=== PATIENT | female | born 1965 | race Caucasian/White ===

== ENCOUNTER 2019-09-29 00:04 | Day surgery (SDC) | payer OTHER, SELFPAY ==
[2019-09-22 14:52] VITALS: BMI 25.1
[2019-09-29 06:39] VITALS: BP 143/40; PULSE 64; RESP 16; TEMP 36.6; O2SAT 99
[2019-09-29] MEDS: LACTATED RINGERS 1,000 ML 150 ML IV CONT (07:09)
--- NOTE | 2019-09-29 07:20 | WPDANESEPPF ---
Anes - Initial Pre Proc Eval Procedure: Operation Date: 09/29/19 07:30 Proposed Procedures p Screening Colonoscopy - Ulices Baugh MD Date/Time: 09/29/19 07:20 Surgeon: Ulices Baugh MD Pre Op Diagnosis: neoplasm screening Patient Data Age: 53 Gender: F Height: 5 ft 8 in Weight: 76.2 kg Last Vital Signs Temp 97.9 F 09/29/19 06:39 Pulse 64 09/29/19 06:39 Resp 16 09/29/19 06:39 BP 143/40 H 09/29/19 06:39 Pulse Ox 99 09/29/19 06:39 Allergies Allergy/AdvReac Type Severity Reaction Status Date / Time No Known Allergies Allergy Unverified 09/29/19 06:38 Home Medications Medication Instructions Recorded Confirmed Type aspirin [Aspir-81] 81 mg PO DAILY 09/22/19 09/29/19 History conjugated estrogens [Premarin] 0.625 mg VAGINAL 3XW 09/22/19 09/29/19 History hydroxyurea 500 mg PO DAILY 09/22/19 09/29/19 History rosuvastatin 10 mg PO DAILY 09/22/19 09/29/19 History telmisartan-hydrochlorothiazid 80 tablet PO DAILY 09/22/19 09/29/19 History Patient hx anesthesia problems: none Family hx anesthesia problems: none PMFSH Past Medical History Medical History (Updated 09/29/19 @ 07:20 by Toni Chaidez MD) 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 Hyperlipidemia Hypertension Social History Social History Gender identity (if verbalized by the patient): Female Anes - Eval Final PreProcedure Day of Procedure 09/29/19 07:20 Patient weight: normal Heart: regular rate and rhythm Lungs: clear to auscultation Airway: Mallampati scale class II Neurological: alert and oriented Last oral intake: >/= 8 hours ASA classification: II Emergent: no Anesthetic plan: proceed Anesthesia type and monitoring: general GIVS and standard monitoring Informed Consent: The patient's anesthetic plan and its attendant risks and benefits were discussed with the patient/family/POA. Questions were solicited and answers provided to the satisfaction of the patient/family/POA.
--- NOTE | 2019-09-29 07:49 | WPDGICN ---
Assessment and Plan Assessment and plan (1) Encounter for screening for colorectal malignant neoplasm: Code(s): Z12.11 - Encounter for screening for malignant neoplasm of colon; Z12.12 - Encounter for screening for malignant neoplasm of rectum Status: Acute Assessment and Plan: Neoplasia screening colonoscopy advised. High-fiber diet suggested. Further recommendations may be given after endoscopy. GI Consult Note Consult date/time: 09/29/19 07:49 HPI: Thuy Quintero is a 53 year old female Seen in evaluation at the request of BERTA Balderrama. Patient presents for neoplasia screening. Current weight appetite bowel movements are normal. She denies any blood in her stools. Family history noncontributory. She denies abdominal pain. Her bowel habits are normal. 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 Hyperlipidemia Hypertension Social History Social History Gender identity (if verbalized by the patient): Female Meds Home Medications and Allergies Home Medications Medication Instructions Recorded Confirmed Type aspirin [Aspir-81] 81 mg PO DAILY 09/22/19 09/29/19 History conjugated estrogens [Premarin] 0.625 mg VAGINAL 3XW 09/22/19 09/29/19 History hydroxyurea 500 mg PO DAILY 09/22/19 09/29/19 History rosuvastatin 10 mg PO DAILY 09/22/19 09/29/19 History telmisartan-hydrochlorothiazid 80 tablet PO DAILY 09/22/19 09/29/19 History Allergies Allergy/AdvReac Type Severity Reaction Status Date / Time No Known Allergies Allergy Unverified 09/29/19 06:38 Vital Signs Vital Signs - 24 hr 09/29/19 06:39 Temperature 36.6 C Pulse Rate 64 Respiratory Rate 16 Blood Pressure 143/40 H Pulse Oximetry 99 Exam Narrative: Exam Narrative: Physical exam reveals her to be alert. Vital signs stable. HEENT exam unremarkable. Lungs are clear to auscultation and percussion. Heart is without murmur or extra sounds. Abdominal exam bowel sounds are present soft nontender with no organomegaly. Digital external rectal exam is normal.
[2019-09-29 07:55] VITALS: BP 108/46; PULSE 74; RESP 16; O2SAT 97
[2019-09-29 08:05] VITALS: BP 109/36; PULSE 74; RESP 16; O2SAT 98
[2019-09-29 08:20] VITALS: BP 108/56; PULSE 77; RESP 16; O2SAT 98
== END 2019-09-29 08:25 | disposition home or self-care (01) ==
PROVIDERS: PCP Family Medicine; Visit Provider Internal Medicine Gastroenterology
PROC: 0DJD8ZZ Inspection of Lower Intestinal Tract, Via Natural or Artificial Opening Endoscopic (ICD-10-PCS; CPT 45378; principal; 2019-09-29 07:30)
DX: Z12.11 Encounter for screening for malignant neoplasm of colon (principal); K57.30 Diverticulosis of large intestine without perforation or abscess without bleeding; K64.8 Other hemorrhoids; I10 Essential (primary) hypertension; E78.5 Hyperlipidemia, unspecified; Z86.718 Personal history of other venous thrombosis and embolism; Z79.82 Long term (current) use of aspirin
CPT/HCPCS: 45378; J2704; J7120

== ENCOUNTER 2020-07-30 08:14 | Outpatient (NON) | payer OTHER, SELFPAY ==
[2020-07-30 23:29] LABS: SARS-CoV-2 RNA PCR Negative
== END 2020-07-30 08:15 ==
PROVIDERS: PCP Family Medicine; Visit Provider Family Medicine
DX: Z01.812 Encounter for preprocedural laboratory examination (principal); Z20.822 Contact with and (suspected) exposure to COVID-19
CPT/HCPCS: C9803; U0003

== ENCOUNTER → 2020-11-30 01:19 | Outpatient (CLI) | payer OTHER, SELFPAY ==
[2020-11-30 18:55] LABS: SARS-CoV-2 RNA PCR Negative
== END ==
PROVIDERS: PCP Family Medicine; Visit Provider Internal Medicine Gastroenterology
DX: Z01.812 Encounter for preprocedural laboratory examination (principal); Z20.822 Contact with and (suspected) exposure to COVID-19
CPT/HCPCS: C9803; U0003; U0005

== ENCOUNTER 2020-12-03 05:30 | Day surgery (SDC) | payer OTHER, SELFPAY ==
[2020-11-22 15:16] VITALS: BMI 25.5
[2020-12-03 06:36] VITALS: BP 133/47; PULSE 69; RESP 18; TEMP 36.7; O2SAT 100; BMI 26.2
[2020-12-03] MEDS: LACTATED RINGERS 1,000 ML 150 ML IV CONT (06:40)
--- NOTE | 2020-12-03 07:21 | WPDANESEPPF ---
Anes - Initial Pre Proc Eval Procedure: Operation Date: 12/03/20 07:30 Proposed Procedures p Esophagogastroduodenoscopy - Blake Caballero MD Date/Time: 12/03/20 07:21 Surgeon: Blake Caballero MD Pre Op Diagnosis: epigastric pain Patient Data Age: 54 Gender: F Height: 5 ft 8 in Weight: 78.1 kg Last Vital Signs Temp 98.1 F 12/03/20 06:36 Pulse 69 12/03/20 06:36 Resp 18 12/03/20 06:36 BP 133/47 L 12/03/20 06:36 Pulse Ox 100 12/03/20 06:36 Allergies Allergy/AdvReac Type Severity Reaction Status Date / Time No Known Allergies Allergy Verified 12/03/20 06:34 Home Medications Medication Instructions Recorded Confirmed Type aspirin [Aspir-81] 81 mg PO DAILY 09/22/19 12/03/20 History conjugated estrogens [Premarin] 0.625 mg VAGINAL 3XW 09/22/19 12/03/20 History rosuvastatin 10 mg PO DAILY 09/22/19 12/03/20 History telmisartan-hydrochlorothiazid 80 tablet PO DAILY 09/22/19 12/03/20 History allopurinol 300 mg PO BID 11/22/20 12/03/20 History ivosidenib [Tibsovo] 500 mg PO BID 11/22/20 12/03/20 History pantoprazole 40 mg PO DAILY 11/22/20 12/03/20 History rivaroxaban [Xarelto] 10 mg PO DAILY 11/22/20 12/03/20 History ruxolitinib [Jakafi] 10 mg PO BID 11/22/20 12/03/20 History Patient hx anesthesia problems: none Family hx anesthesia problems: none PMFSH Past Medical History Medical History (Updated 09/29/19 @ 07:51 by Ulices Baugh MD) 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 Hyperlipidemia Hypertension Social History Social History Smoking status: Former smoker Tobacco type: cigarettes Smoking end date: 07/23/89 Alcohol intake: never Substance use: never Substance use type: does not use Living arrangements: with family Gender identity (if verbalized by the patient): Female Sexual Orientation (if Verbalized by the Patient): Straight or Heterosexual Spiritual care concerns: No Anes - Eval Final PreProcedure Day of Procedure 12/03/20 07:21 Patient weight: normal Heart: regular rate and rhythm Lungs: clear to auscultation Airway: Mallampati scale class II Neurological: alert and oriented Last oral intake: >/= 8 hours ASA classification: III Emergent: no Anesthetic plan: proceed Anesthesia type and monitoring: general GIVS and standard monitoring Informed Consent: The patient's anesthetic plan and its attendant risks and benefits were discussed with the patient/family/POA. Questions were solicited and answers provided to the satisfaction of the patient/family/POA.
--- NOTE | 2020-12-03 07:34 | PM.HPGS ---
History of Present Illness History of Present Illness Consent: Risks, benefits, and alternatives have been discussed and questions answered. Patient agrees to proceed with procedure. Chief complaint: epigastric pain Narrative: Thuy Quintero is a 54 year old female with gerd and phlegm in throat, better with protonix but never had egd Review of Systems Constitutional: Constitutional: Denies headache(s) and Denies weakness Eyes: Eyes: Denies blurry vision ENT: Reports Normal hearing present, Denies headache(s) and Denies neck pain Cardiovascular: Cardiovascular: Denies chest pain and Denies dyspnea Respiratory: Respiratory: Denies dyspnea Gastrointestinal: Gastrointestinal: Reports no additional gastrointestinal complaints Genitourinary: Genitourinary: Denies dysuria Musculoskeletal: Musculoskeletal: Denies neck pain Integumentary/Breasts: Skin/Breast: Denies dry skin Neurologic: Reports Normal hearing present, Denies headache(s) and Denies weakness Psychiatric: Psychiatric: Denies anxiety Endocrine: Endocrine: Denies change in body appearance Hematologic/Lymphatic: Hematologic/Lymphatic: Denies easy bleeding Allergic/Immunologic: Allergic/Immunologic: Denies urticaria PMFSH Past Medical History Medical History (Updated 12/03/20 @ 07:35 by Blake Caballero MD) 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 GERD (gastroesophageal reflux disease) Hyperlipidemia Hypertension Social History Social History Smoking status: Former smoker Tobacco type: cigarettes Smoking end date: 07/23/89 Alcohol intake: never Substance use: never Substance use type: does not use Living arrangements: with family Gender identity (if verbalized by the patient): Female Sexual Orientation (if Verbalized by the Patient): Straight or Heterosexual Spiritual care concerns: No Meds Home Medications and Allergies Home Medications Medication Instructions Recorded Confirmed Type aspirin [Aspir-81] 81 mg PO DAILY 09/22/19 12/03/20 History conjugated estrogens [Premarin] 0.625 mg VAGINAL 3XW 09/22/19 12/03/20 History rosuvastatin 10 mg PO DAILY 09/22/19 12/03/20 History telmisartan-hydrochlorothiazid 80 tablet PO DAILY 09/22/19 12/03/20 History allopurinol 300 mg PO BID 11/22/20 12/03/20 History ivosidenib [Tibsovo] 500 mg PO BID 11/22/20 12/03/20 History pantoprazole 40 mg PO DAILY 11/22/20 12/03/20 History rivaroxaban [Xarelto] 10 mg PO DAILY 11/22/20 12/03/20 History ruxolitinib [Jakafi] 10 mg PO BID 11/22/20 12/03/20 History Allergies Allergy/AdvReac Type Severity Reaction Status Date / Time No Known Allergies Allergy Verified 12/03/20 06:34 Vital Signs Vital Signs - 24 hr 12/03/20 06:36 Temperature 98.1 F Pulse Rate 69 Respiratory Rate 18 Blood Pressure 133/47 L Pulse Oximetry 100 Exam Const: General: comfortable and no acute distress HENMT: General nose exam: Normal nares present Eyes: General: appearance normal, both eyes and all related structures Neck: Neck: no JVD Resp: Auscultation: clear to auscultation bilaterally Cardio: Rate: regular rate Rhythm: regular rhythm GI: Inspection: non-distended GI Palp: Yes Soft to palpation Skin: General skin exam: normal color Neuro: General: gait normal Speech: normal speech Extrem: General: normal to inspection Psych: Mental Status: mental status grossly normal Assessment and Plan Assessment and plan (1) GERD (gastroesophageal reflux disease): Code(s): K21.9 - Gastro-esophageal reflux disease without esophagitis Status: Acute Assessment and Plan: egd with bx
[2020-12-03 07:49] VITALS: BP 114/48; PULSE 74; RESP 19; O2SAT 98
[2020-12-03 08:03] VITALS: BP 124/58; PULSE 71; RESP 18; O2SAT 98
[2020-12-03 08:09] VITALS: BP 136/56; PULSE 77; RESP 17; O2SAT 97
== END 2020-12-03 08:21 | disposition home or self-care (01) ==
PROVIDERS: PCP Family Medicine; Visit Provider Internal Medicine Gastroenterology
PROC: 0DJ08ZZ Inspection of Upper Intestinal Tract, Via Natural or Artificial Opening Endoscopic (ICD-10-PCS; CPT 43235; principal; 2020-12-03 07:30)
DX: K21.9 Gastro-esophageal reflux disease without esophagitis (principal); R14.0 Abdominal distension (gaseous); R49.0 Dysphonia; I10 Essential (primary) hypertension; E78.5 Hyperlipidemia, unspecified; Z86.718 Personal history of other venous thrombosis and embolism; Z87.891 Personal history of nicotine dependence; Z79.82 Long term (current) use of aspirin; Z79.01 Long term (current) use of anticoagulants
CPT/HCPCS: 43239; 88305; C9803; J2704; J7120; U0003; U0005

== ENCOUNTER 2021-02-26 13:42 | Emergency (ER) | payer OTHER, SELFPAY ==
[2021-02-26 13:52] VITALS: BP 132/47; PULSE 66; RESP 16; TEMP 36.2; O2SAT 97
--- NOTE | 2021-02-26 13:55 | ED.WOUNDLAC ---
HPI - Wound/Laceration General Chief Complaint: Wound/Laceration Stated Complaint: wound History of Present Illness HPI narrative: This is a 55 year old female that is complaining of a abscess to the back. Patient was seen by her ammonia solution preparer who gave her something for it but according to patient it is getting worse and more red. Related Data Home Medications Medication Instructions Recorded Confirmed aspirin [Aspir-81] 81 mg PO DAILY 09/22/19 02/26/21 conjugated estrogens [Premarin] 0.625 mg VAGINAL 3XW 09/22/19 02/26/21 rosuvastatin 10 mg PO DAILY 09/22/19 02/26/21 telmisartan-hydrochlorothiazid 80 tablet PO DAILY 09/22/19 02/26/21 allopurinol 300 mg PO BID 11/22/20 02/26/21 ivosidenib [Tibsovo] 500 mg PO DAILY 11/22/20 02/26/21 pantoprazole 40 mg PO DAILY 11/22/20 02/26/21 rivaroxaban [Xarelto] 10 mg PO DAILY 11/22/20 02/26/21 ruxolitinib [Jakafi] 10 mg PO DAILY 11/22/20 02/26/21 Allergies Allergy/AdvReac Type Severity Reaction Status Date / Time No Known Allergies Allergy Verified 02/26/21 14:06 Review of Systems Review of Systems: CONSTITUTIONAL: Denies fever, chills, or sweats. EYES: Denies visual changes, redness, or discharge. ENT: Denies rhinorrhea, congestion, sore throat, or otalgia. CARDIOVASCULAR:Denies chest pain, palpitations, or edema. RESPIRATORY: Denies cough or dyspnea. GASTROINTESTINAL: Denies abdominal pain, nausea, vomiting, or diarrhea. GENITOURINARY: Denies dysuria or hematuria. SKIN:[Denies rash or itching reports.small reden area with core noted and swollen MUSCULOSKELETAL:Denies back pain, joint pain, or myalgia. NEUROLOGIC: Denies headache, numbness, or weakness. 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 Please see nursing chart for further information. There is no relevant family history pertinent to the presenting complaint. Exam Narrative: GENERAL:Well-appearing, well-nourished, and in no acute distress. HEAD:Normocephalic, atraumatic. EYES: PERRLA and EOMI. ENT: Nares clear, no rhinorrhea or epistaxis. Mucous membranes moist. NECK: Supple. CHEST: Clear to auscultation. No respiratory distress. HEART: Regular rate and rhythm. Normal peripheral pulses. ABDOMEN: Soft, nontender, nondistended, normal active bowel sounds. midline back quarter size area with erythema and yellowish drainage and hard core noted. ( pt is on xarelto chose not open) EXTREMITIES: Normal range of motion. No edema. SKIN: Warm, dry, no rash. NEURO: No focal deficits. Alert and oriented x3. Course Vital Signs Vital signs: Vital Signs Temperature 97.1 F L 02/26/21 13:52 Pulse Rate 66 02/26/21 13:52 Respiratory Rate 16 02/26/21 13:52 Blood Pressure 132/47 L 02/26/21 13:52 Pulse Oximetry 97 02/26/21 13:52 Temperature 97.1 F L 02/26/21 13:52 Pulse Rate 66 02/26/21 13:52 Respiratory Rate 16 02/26/21 13:52 Blood Pressure 132/47 L 02/26/21 13:52 Pulse Oximetry 97 02/26/21 13:52 MDM - Wound/Laceration Differential Diagnosis Differential diagnosis: Likely laceration, abscess, abrasion, avulsion of skin and other Discharge Plan Discharge Clinical Impression: Abscess or cellulitis of back Patient Disposition: Home, Self-Care Condition: Stable Instructions: Antibiotic Form, Cellulitis (ED), Abscess (ED) Additional Instructions:
== END 2021-02-26 14:23 | disposition home or self-care (01) ==
PROVIDERS: Emergency Provider Nurse Practitioner Family; PCP Family Medicine
DX: L02.212 Cutaneous abscess of back [any part, except buttock and flank] (principal); L03.312 Cellulitis of back [any part except buttock and flank]; Z87.891 Personal history of nicotine dependence; Z86.718 Personal history of other venous thrombosis and embolism; K21.9 Gastro-esophageal reflux disease without esophagitis; E78.5 Hyperlipidemia, unspecified; I10 Essential (primary) hypertension
CPT/HCPCS: 87070; 87075; 87205; 99213; G0463